=== PATIENT | female | born 1945 | race Hispanic/Latino ===

== ENCOUNTER 2017-02-24 07:58 | Day surgery (SDC) | payer MEDICARE ==
[2017-02-24] MEDS ORDERED: NACL 0.9% 500 ML 500 ML IV SCH (09:00)
[2017-02-24 09:16] LABS: Basophils % (Auto) 0.4 % (0.0-1.8); Eosinophils % (Auto) 2.5 % (0.0-4.3); Hematocrit 39.8 % (30.3-42.9); Hemoglobin 12.5 gm/dl (10.1-14.3); Mean Corpuscular HGB Conc 32 % (30-34); Mean Corpuscular Volume 74 fl (79-97); Platelet Count 323 K/mm3 (140-440); Red Blood Count 5.35 M/mm3 (3.65-5.03); Red Cell Distribution Width 19.6 % (13.2-15.2); White Blood Count 12.3 K/mm3 (4.5-11.0)
[2017-02-24 09:29] LABS: Mean Corpuscular Hemoglobin 24 pg (28-32)
[2017-02-24 09:36] LABS: INR 0.89 (0.87-1.13)
[2017-02-24 09:40] LABS: Anion Gap 18 mmol/L; Blood Urea Nitrogen 17 mg/dL (7-17); Calcium 8.9 mg/dL (8.4-10.2); Carbon Dioxide 22 mmol/L (22-30); Chloride 104.8 mmol/L (98-107); Glucose 94 mg/dL (65-100); Potassium 3.6 mmol/L (3.6-5.0); Sodium 141 mmol/L (137-145)
[2017-02-24] MEDS ORDERED: ECOTRIN PO ONE (10:00)
[2017-02-24] MEDS ORDERED: HEPARIN/NS 5000 UNIT/500ML(CATH LAB) 1,000 ML IR ONE (11:27)
[2017-02-24] MEDS ORDERED: HEPARIN 10,000 UNITS/10 ML ONE (11:28)
[2017-02-24] MEDS ORDERED: XYLOCAINE 2% INFILTRATI ONE (11:28)
[2017-02-24] MEDS ORDERED: CALAN ONE (11:28)
[2017-02-24] MEDS ORDERED: VERSED ONE (11:29)
[2017-02-24] MEDS ORDERED: NITROGLYCERIN SYRINGE 3 ML ONE (11:29)
[2017-02-24] MEDS ORDERED: SUBLIMAZE ONE (11:30)
[2017-02-24 14:40] VITALS: BP 131/49
--- NOTE | 2017-02-24 15:13 | Short Stay Summary ---
Short Stay Documentation Date of service: 02/24/17 - History H&P: obtained from office - Allergies and Medications Current Medications: Allergies acetaminophen [From Percocet] Adverse Reaction (Severe, Verified 02/24/17 09:07) FEEL LIKE SHE IS HAVING A HEART ATTACK oxycodone HCl [From Percocet] Adverse Reaction (Severe, Verified 02/24/17 09:07) FEEL LIKE SHE IS HAVING A HEART ATTACK ANA Inhibitors Adverse Reaction (Verified 02/24/17 09:07) CHRONIC COUGH adhesive tape Adverse Reaction (Unverified 02/24/17 08:01) Itching, SKIN BLISTERS prednisone Adverse Reaction (Verified 02/24/17 09:07) Unknown Home Medications Medication Instructions Recorded Confirmed Last Taken Type Aspirin EC [Aspirin Enteric Coated 81 mg PO DAILY 02/24/17 02/24/17 02/23/17 History TAB] 81mg Budesoni/Formoterol 80-4.5(Nf) 2 puff INHALATION BID 02/24/17 02/24/17 02/24/17 09:15 History [Symbicort 80-4.5 (Nf)] 2 puffs Canagliflozin [Invokana] 1,000 mg PO DAILY 02/24/17 02/24/17 02/23/17 History Escitalopram [Lexapro] 10 mg PO DAILY 02/24/17 02/24/17 02/23/17 History 10mg Furosemide [Lasix TAB] 20 mg PO PRN PRN 02/24/17 02/24/17 02/03/17 History 20mg Glimepiride [Glimepiride] 4 mg PO BID 02/24/17 02/24/17 02/23/17 History 4mg ISOSORBIDE MONOnitrate [Imdur ER] 30 mg PO DAILY 02/24/17 02/24/17 02/23/17 History 30mg Insulin Detemir [Levemir Flextouch] 40 units SQ QAM 02/24/17 02/24/17 02/23/17 08:00 History 40units Levemir Flextouch 30 units SQ QPM 02/24/17 02/24/17 02/23/17 22:00 History 30units Metformin HCl [Glucophage] 1,000 mg PO BID 02/24/17 02/24/17 02/23/17 History 1000mg [place]-3 Fatty Acids/Fish Oil [Fish 1 cap PO DAILY 02/24/17 02/24/17 02/23/17 History Oil] 1 cap Omeprazole [Omeprazole] 40 mg PO DAILY 02/24/17 02/24/17 02/23/17 History 40mg Vit D3 & K/Berberine HCl/Hops 1 tab PO DAILY 02/24/17 02/24/17 02/23/17 History [Ostera Tablet] 1 tab Active Medications Sodium Chloride (Nacl 0.9% 500 Ml) 500 mls @ 50 mls/hr IV DIRECT LUIS FERNANDO Stop: 02/24/17 18:59 Last Admin: 02/24/17 08:32 Dose: 50 mls/hr - Brief post op/procedure progress note Date of procedure: 02/24/17 Pre-op diagnosis: chest pain Post-op diagnosis: same Procedure: LHC - see cath report Anesthesia: local Estimated blood loss: none Pathology: none Condition: stable - Disposition Condition at discharge: Stable Disposition: [id number] TO HOME OR SELFCARE - Discharge Diagnoses (1) Chest pain Status: Chronic Qualifiers: Chest pain type: C Ischemic chest pain type: I (2) Abnormal stress test Status: Chronic (3) HTN (hypertension) Status: Chronic Qualifiers: Hypertension type: H (4) Hyperlipemia Status: Chronic Qualifiers: Hyperlipidemia type: H Short Stay Discharge Plan Activity: advance as tolerated Diet: low fat, low cholesterol, low salt Wound: open to air, keep clean and dry Follow up with: JOLEEN AQUINO MD [Staff Physician] - 7 Days Forms: CardCath PCI D/C Instructions
--- NOTE | 2017-03-18 11:06 | Prelim Cardiac Cath Report ---
Preliminary Cath Report - Other Findings Estimated blood loss: minimal Dominance: right Estimated Ejection Fraction: 55 LV Contractility: left ventricular systolic function was found to be normal. EF 55%. Coronary Anatomy: 71-year-old female with history of diabetes, hypertension, atypical chest pains , and abnormal nuclear imaging with lateral ischemia was scheduled for cardiac catheterization for definitive diagnosis and treatment. Patient is aware of procedure, potential complications and alternators of therapy available. Patient was brought to catheterization laboratory in fasting condition.sterile drapes were applied. Local anesthesia was given using 2% Xylocaine over her right wrist area. Right radial artery puncture was made using 20 G arterial puncture needed. 5F she thought was introduced. Using multipurpose catheter, left ventricular program was perforformed in audio projection and hand injection.using same catheter, right coronary angiograms are obtained in multiple views. This catheter was exchanged with Tig catheter for obtaining angiograms of left coronary artery. Patient was noted to have catheter induced spasm during the right coronary injection,hence JR 4 catheter was used to engage right coronary artery and repeat angiograms were obtained. At the end of the procedure, catheter and sheaths were removed and hemostasis was achieved with pressure bandage. No untoward complications were noted. patient tolerated the procedure well. Left ventriculogram: was performed with hand injection. Showed normal size left ventricle with normal ejection fraction. Ejection fraction was felt to be around 55%. Only limited the amount of dye was injected and mitral regurgitation could not be evaluated. Right coronary artery: dominant vessel, angiographically smooth and normal. However, catheter induced spasm noted in proximal part, and final angiograms showed marked improvement in spasm. No untoward reaction noted. Left coronary artery: left main, LAD which curves around apex,it's diagonal branches , circumflex artery and its branches, ramus branch are angiographically smooth and nor Final impression: normal size the left ventricle with normal contractility, normal coronary anatomy noted. At this time, would continue risk factor modification. Etiology of chest pain is not clear. Findings were explained to patient and family. They understand.
== END 2017-02-24 15:15 | disposition home or self-care (01) ==
LOC: OPU 07:58
PROVIDERS: ATTEND Internal Medicine
DX: R94.39 Abnormal result of other cardiovascular function study (principal); R07.89 Other chest pain; I10 Essential (primary) hypertension; J44.9 Chronic obstructive pulmonary disease, unspecified; E78.5 Hyperlipidemia, unspecified; E11.9 Type 2 diabetes mellitus without complications; E55.9 Vitamin D deficiency, unspecified; F17.290 Nicotine dependence, other tobacco product, uncomplicated; Z88.8 Allergy status to other drugs, medicaments and biological substances; Z91.09 Other allergy status, other than to drugs and biological substances; Z86.79 Personal history of other diseases of the circulatory system; Z79.82 Long term (current) use of aspirin; Z79.899 Other long term (current) drug therapy; Z79.84 Long term (current) use of oral hypoglycemic drugs
CPT/HCPCS: 36415; 80048; 82962; 85025; 85610; 85730; 93005; 93010; 93458; C1769; C1887; C1894; J1644; J2250; J3010; J7040; Q9967

== ENCOUNTER 2021-07-22 07:11 | Emergency (ER) | payer MEDICARE ==
--- NOTE | 2021-07-22 07:14 | Emergency Department Report ---
ED Neuro Deficit HPI - General Chief Complaint: Neuro Symptoms/Deficit Stated Complaint: Left Sided Facial Droop Time Seen by Provider: 07/22/21 07:12 Source: patient, family, EMS (Verbal report received from emergency medical services. EMS documentation not available at time of chart dictation ), RN notes reviewed, old records reviewed Mode of arrival: Stretcher Limitations: Altered Mental Status, Physical Limitation - History of Present Illness Initial Comments: The patient is a 75-year-old female. She is not known to myself previously. She has a history of diabetes, hypertension and high cholesterol. She is brought to the hospital by emergency medical services as a code stroke. Stroke symptoms include altered mental status, left-sided hemiparesis, and left-sided facial droop. Her last known well time is not known. The patient is awake but confused. The patient denies physical pain. Patient accompanied by daughter, and subsequently . Patient not able to describe the qualitative nature of symptoms, exacerbating factors relieving factors or aggravating factors -: unknown Location: speech, left face, left arm, left leg Presenting Symptoms: Present: Weak/Paralyzed One Side, Facial Droop/Numbness, Unable to Speak Clearly, Altered Mental Status - Related Data Home Medications: Home Medications Medication Instructions Recorded Confirmed Last Taken Aspirin EC [Halfprin EC] 81 mg PO DAILY 02/24/17 07/22/21 02/23/17 81 mg Budesoni/Formoterol 80-4.5(Nf) 2 puff INHALATION BID 02/24/17 07/22/21 02/24/17 09:15 [Symbicort 80-4.5 (Nf)] 2 puffs Canagliflozin [Invokana] 1,000 mg PO DAILY 02/24/17 07/22/21 02/23/17 Escitalopram [Lexapro] 10 mg PO DAILY 02/24/17 07/22/21 02/23/17 10 mg Furosemide [Lasix TAB] 20 mg PO PRN PRN 02/24/17 07/22/21 02/03/17 20 mg Glimepiride 4 mg PO BID 02/24/17 07/22/21 02/23/17 4 mg ISOSORBIDE MONOnitrate [Imdur ER] 30 mg PO DAILY 02/24/17 07/22/21 02/23/17 30 mg Insulin Detemir (Nf) [Levemir 40 units SQ QAM 02/24/17 07/22/21 02/23/17 08:00 Flextouch (Nf)] 40 units Levemir Flextouch 30 units SQ QPM 02/24/17 07/22/21 02/23/17 22:00 30 units Metformin HCl [Glucophage] 1,000 mg PO BID 02/24/17 07/22/21 02/23/17 1000 mg [place]-3 Fatty Acids/Fish Oil [Fish 1 cap PO DAILY 02/24/17 07/22/21 02/23/17 Oil] 1 cap Omeprazole 40 mg PO DAILY 02/24/17 07/22/21 02/23/17 40 mg Vit D3-Vit K/Berberine/Hops 1 tab PO DAILY 02/24/17 07/22/21 02/23/17 [Ostera Tablet] 1 tab Metoprolol Tartrate [Lopressor] 150 mg PO DAILY 07/22/21 07/22/21 Unknown Sulfamethoxazole/Trimethoprim 800 each PO DAILY 07/22/21 07/22/21 Unknown [Sulfamethoxazole-Tmp Ds Tablet] buPROPion SR [Wellbutrin Sr] 150 mg PO BID 07/22/21 07/22/21 Unknown carBAMazepine [Carbamazepine] 100 mg PO Q8HR PRN 07/22/21 07/22/21 Unknown Allergies/Adverse Reactions: Allergies Allergy/AdvReac Type Severity Reaction Status Date / Time acetaminophen [From Percocet] AdvReac Severe FEEL LIKE Verified 02/24/17 09:07 SHE IS HAVING A HEART ATTACK oxycodone HCl [From Percocet] AdvReac Severe FEEL LIKE Verified 02/24/17 09:07 SHE IS HAVING A HEART ATTACK ANA Inhibitors AdvReac CHRONIC Verified 02/24/17 09:07 COUGH adhesive tape AdvReac Itching, Unverified 02/24/17 08:01 SKIN BLISTERS prednisone AdvReac Unknown Verified 02/24/17 09:07 ED Review of Systems ROS: Stated complaint: Left Sided Facial Droop Other details as noted in HPI Comment: Unobtainable due to pts medical conditions Cardiovascular: denies: chest pain Gastrointestinal: denies: abdominal pain Neurological: weakness ED Past Medical Hx - Past Medical History Hx Hypertension: Yes Hx Congestive Heart Failure: Yes Hx Diabetes: Yes Hx GERD: Yes Hx COPD: Yes - Surgical History Hx Cholecystectomy: Yes Hx Appendectomy: Yes - Social History Smoking Status: Current Every Day Smoker - Medications Home Medications: Home Medications Medication Instructions Recorded Confirmed Last Taken Type Aspirin EC [Halfprin EC] 81 mg PO DAILY 02/24/17 07/22/21 02/23/17 History 81 mg Budesoni/Formoterol 80-4.5(Nf) 2 puff INHALATION BID 02/24/17 07/22/21 02/24/17 09:15 History [Symbicort 80-4.5 (Nf)] 2 puffs Canagliflozin [Invokana] 1,000 mg PO DAILY 02/24/17 07/22/21 02/23/17 History Escitalopram [Lexapro] 10 mg PO DAILY 02/24/17 07/22/21 02/23/17 History 10 mg Furosemide [Lasix TAB] 20 mg PO PRN PRN 02/24/17 07/22/21 02/03/17 History 20 mg Glimepiride 4 mg PO BID 02/24/17 07/22/21 02/23/17 History 4 mg ISOSORBIDE MONOnitrate [Imdur ER] 30 mg PO DAILY 02/24/17 07/22/21 02/23/17 History 30 mg Insulin Detemir (Nf) [Levemir 40 units SQ QAM 02/24/17 07/22/21 02/23/17 08:00 History Flextouch (Nf)] 40 units Levemir Flextouch 30 units SQ QPM 02/24/17 07/22/21 02/23/17 22:00 History 30 units Metformin HCl [Glucophage] 1,000 mg PO BID 02/24/17 07/22/21 02/23/17 History 1000 mg [place]-3 Fatty Acids/Fish Oil [Fish 1 cap PO DAILY 02/24/17 07/22/21 02/23/17 History Oil] 1 cap Omeprazole 40 mg PO DAILY 02/24/17 07/22/21 02/23/17 History 40 mg Vit D3-Vit K/Berberine/Hops 1 tab PO DAILY 02/24/17 07/22/21 02/23/17 History [Ostera Tablet] 1 tab Metoprolol Tartrate [Lopressor] 150 mg PO DAILY 07/22/21 07/22/21 Unknown History Sulfamethoxazole/Trimethoprim 800 each PO DAILY 07/22/21 07/22/21 Unknown Hi story [Sulfamethoxazole-Tmp Ds Tablet] buPROPion SR [Wellbutrin Sr] 150 mg PO BID 07/22/21 07/22/21 Unknown History carBAMazepine [Carbamazepine] 100 mg PO Q8HR PRN 07/22/21 07/22/21 Unknown History ED Neuro Physical Exam - General Limitations: Altered Mental Status, Physical Limitation General appearance: anxious, in distress, obese Suspected Stroke: Yes - Head Head exam: Present: atraumatic, normocephalic - Eye Eye exam: Present: normal appearance, EOMI - ENT ENT exam: Present: normal exam, normal orophraynx, mucous membranes moist, normal external ear exam - Neck Neck exam: Present: normal inspection, full ROM. Absent: tenderness, meningismus - Respiratory Respiratory exam: Present: normal lung sounds bilaterally. Absent: respiratory distress, wheezes, rales, rhonchi, stridor, decreased breath sounds - Cardiovascular Cardiovascular Exam: Present: regular rate, normal rhythm, normal heart sounds. Absent: bradycardia, tachycardia, irregular rhythm, systolic murmur, diastolic murmur, rubs, gallop - GI/Abdominal GI/Abdominal exam: Present: soft. Absent: distended, tenderness, guarding, rebound, rigid, pulsatile mass - Extremities Exam Extremities exam: Present: normal inspection, full ROM (Right arm, right leg.), pedal edema (1+ edema in the bilateral lower extremities), other (2+ pulses noted in the bilateral upper and lower extremities. There is no palpable cord. negative Homans sign. Muscular compartments are soft. The pelvis is stable.). Absent: calf tenderness - Back Exam Back exam: Present: normal inspection. Absent: tenderness, paraspinal tenderness - Neurological Exam Neurological exam: Present: altered (The patient is awake to name. The patient follows commands.), motor sensory deficit (Hemiparesis left arm and left leg), other (There is left-sided facial droop. EOMI. Tongue midline.) - NIHSS Assessment Interval: Baseline 1a. Level of Consciousness: alert/keenly responsive 1b. LOC Questions: dysarthric/intubated 1c. LOC Commands: performs 1 task correctly 2. Best Gaze: normal 3. Visual: no visual loss 4. Facial Palsy: partial paralysis 5b. Motor Arm Right: drift 5a. Motor Arm Left: no gravity effort 6a. Motor Leg Left: no gravity effort 6b. Motor Leg Right: drift 7. Limb Ataxia: present 1 limb 8. Sensory: severe/total sensory loss 9. Best Language: mild/moderate aphasia 10. Dysarthria: mild/moderate dysarthria 11. Extinction/Inattention: visual/tactile inattention Total Score: 18 Stroke Severity: Moderate to Severe Stroke - Psychiatric Psychiatric exam: Present: normal affect, normal mood - Skin Skin exam: Present: warm, dry, intact, normal color. Absent: rash ED Course Vital Signs 07/22/21 07/22/21 07/22/21 07:15 07:32 07:45 Temperature 97.7 F Pulse Rate 82 86 84 Respiratory 15 18 20 Rate Blood Pressure 157/68 O2 Sat by Pulse 95 97 96 Oximetry 07/22/21 07/22/21 07/22/21 07:56 08:01 08:15 Temperature 97.7 F Pulse Rate 82 71 Respiratory 16 22 Rate Blood Pressure 153/76 157/68 O2 Sat by Pulse 96 95 Oximetry - Reevaluation(s) Reevaluation #1: 07/22/21 08:12 Differential diagnosis, including but not limited to: Stroke, pneumonia, urinary tract infection Assessment and plan: Elderly 75-year-old female, presenting with a clinical right MCA syndrome, last known well time is not known, therefore, she is not a TPA candidate. Noncontrast CT scan of the brain was negative for acute findings. A CT angiogram head and neck was obtained emergently given concern for right sided MCA syndrome. The radiologist has called me with a report of a right M2 MCA occlusion, and a right-sided carotid bulb stenosis, 89 to 90%. I have requested that CT scans be emergently transmitted to [facility] PACS. I have personally placed a page to the [place] acute stroke attending to discuss whether or not this patient is an emergent endovascular candidate. I discussed this with the patient's family and . Patient also seen by my stroke neurologist, Dr. Alonso, who agrees with the plan of care. We are currently awaiting callback from [place] stroke neurology. 07/22/21 08:53 Discussed history, physical, imaging studies and clinical impression with acute stroke neurology at [facility], Dr Hwang He is going to evaluate the patient's images, make further recommendations. The patient's , who does not live with the patient, states that he last saw the patient normal at 2:00 PM yesterday. The patient tells me that she went to bed at 430 this morning, and felt fine, and woke up at around 6:00 this morning, with her strokelike symptoms. She denies physical pain at this time. 07/22/21 09:25 Have not discussed history, physical, imaging studies and clinical impression with [facility] stroke neurologist, Dr. Kaya Sandoval; He is currently reviewing patient's imaging. He is going to make further recommendations. 07/22/21 09:40 Dr. Kaya Sandoval has accepted this patient to [facility] for emergent thrombectomy and intervention. Patient has an acute stroke and is within 24 hours of her last known well time, she has an emergent medical condition at this time which cannot be definitively managed at this hospital, as we are not able to perform endovascular intervention on acute stroke patients. I discussed this with the patient, her daughter, and her . All questions answered. They have provided consent for transfer. At the moment, blood pressure 150 systolic, patient awake, protecting airway, moving right hemibody, charge nurse to arrange emergent transfer, either ambulance, lights and sirens, or airlift. - Lab Data Result diagrams: 07/22/21 07:42 07/22/21 07:42 Lab Results 07/22/21 07/22/21 07/22/21 Range/Units 07:42 07:42 07:42 WBC 12.9 H (4.5-11.0) K/mm3 RBC 4.93 (3.65-5.03) M/mm3 Hgb 15.9 H (10.1-14.3) gm/dl Hct 49.0 H (30.3-42.9) % MCV 99 H (79-97) fl MCH 32 (28-32) pg MCHC 33 (30-34) % RDW 13.3 (13.2-15.2) % Plt Count 202 (140-440) K/mm3 Lymph % (Auto) 13.9 (13.4-35.0) % [place] % (Auto) 6.1 (0.0-7.3) % Eos % (Auto) 0.7 (0.0-4.3) % Baso % (Auto) 0.2 (0.0-1.8) % Lymph # (Auto) 1.8 (1.2-5.4) K/mm3 [place] # (Auto) 0.8 (0.0-0.8) K/mm3 Eos # (Auto) 0.1 (0.0-0.4) K/mm3 Baso # (Auto) 0.0 (0.0-0.1) K/mm3 Seg Neutrophils % 79.1 H (40.0-70.0) % Seg Neutrophils # 10.2 H (1.8-7.7) K/mm3 PT 12.6 (12.2-14.9) Sec. INR 0.85 L (0.87-1.13) APTT > 240.0 H* (24.2-36.6) Sec. Thrombin Time < 13.0 L (15.1-19.6) Sec. Sodium (137-145) mmol/L Potassium (3.6-5.0) mmol/L Chloride (98-107) mmol/L Carbon Dioxide (22-30) mmol/L Anion Gap mmol/L BUN (7-17) mg/dL Creatinine (0.6-1.2) mg/dL Estimated GFR ml/min BUN/Creatinine Ratio % Glucose (65-100) mg/dL POC Glucose (70-105) mg/dL Calcium (8.4-10.2) mg/dL Total Bilirubin (0.1-1.2) mg/dL AST (5-40) units/L ALT (7-56) units/L Alkaline Phosphatase (35-129) units/L Total Creatine Kinase 25 L (30-135) units/L CK-MB (CK-2) 1.8 (0.0-4.0) ng/mL CK-MB (CK-2) Rel Index 7.2 H (0-4) Troponin T < 0.010 (0.00-0.029) ng/mL Total Protein (6.3-8.2) g/dL Albumin (3.9-5) g/dL Albumin/Globulin Ratio % TSH (0.270-4.200) mlU/mL Plasma/Serum Alcohol (0-0.07) % 07/22/21 07/22/21 07/22/21 Range/Units 07:42 07:42 07:42 WBC (4.5-11.0) K/mm3 RBC (3.65-5.03) M/mm3 Hgb (10.1-14.3) gm/dl Hct (30.3-42.9) % MCV (79-97) fl MCH (28-32) pg MCHC (30-34) % RDW (13.2-15.2) % Plt Count (140-440) K/mm3 Lymph % (Auto) (13.4-35.0) % [place] % (Auto) (0.0-7.3) % Eos % (Auto) (0.0-4.3) % Baso % (Auto) (0.0-1.8) % Lymph # (Auto) (1.2-5.4) K/mm3 [place] # (Auto) (0.0-0.8) K/mm3 Eos # (Auto) (0.0-0.4) K/mm3 Baso # (Auto) (0.0-0.1) K/mm3 Seg Neutrophils % (40.0-70.0) % Seg Neutrophils # (1.8-7.7) K/mm3 PT (12.2-14.9) Sec. INR (0.87-1.13) APTT (24.2-36.6) Sec. Thrombin Time (15.1-19.6) Sec. Sodium 134 L (137-145) mmol/L Potassium 4.1 (3.6-5.0) mmol/L Chloride 98.1 (98-107) mmol/L Carbon Dioxide 23 (22-30) mmol/L Anion Gap 17 mmol/L BUN 13 (7-17) mg/dL Creatinine 0.5 L (0.6-1.2) mg/dL Estimated GFR > 60 ml/min BUN/Creatinine Ratio 26 % Glucose 114 H (65-100) mg/dL POC Glucose (70-105) mg/dL Calcium 9.0 (8.4-10.2) mg/dL Total Bilirubin 0.20 (0.1-1.2) mg/dL AST 13 (5-40) units/L ALT 12 (7-56) units/L Alkaline Phosphatase 114 (35-129) units/L Total Creatine Kinase (30-135) units/L CK-MB (CK-2) (0.0-4.0) ng/mL CK-MB (CK-2) Rel Index (0-4) Troponin T (0.00-0.029) ng/mL Total Protein 7.5 (6.3-8.2) g/dL Albumin 3.1 L (3.9-5) g/dL Albumin/Globulin Ratio 0.7 % TSH 9.450 H (0.270-4.200) mlU/mL Plasma/Serum Alcohol < 0.01 (0-0.07) % 07/22/21 Range/Units 08:34 WBC (4.5-11.0) K/mm3 RBC (3.65-5.03) M/mm3 Hgb (10.1-14.3) gm/dl Hct (30.3-42.9) % MCV (79-97) fl MCH (28-32) pg MCHC (30-34) % RDW (13.2-15.2) % Plt Count (140-440) K/mm3 Lymph % (Auto) (13.4-35.0) % [place] % (Auto) (0.0-7.3) % Eos % (Auto) (0.0-4.3) % Baso % (Auto) (0.0-1.8) % Lymph # (Auto) (1.2-5.4) K/mm3 [place] # (Auto) (0.0-0.8) K/mm3 Eos # (Auto) (0.0-0.4) K/mm3 Baso # (Auto) (0.0-0.1) K/mm3 Seg Neutrophils % (40.0-70.0) % Seg Neutrophils # (1.8-7.7) K/mm3 PT (12.2-14.9) Sec. INR (0.87-1.13) APTT (24.2-36.6) Sec. Thrombin Time (15.1-19.6) Sec. Sodium (137-145) mmol/L Potassium (3.6-5.0) mmol/L Chloride (98-107) mmol/L Carbon Dioxide (22-30) mmol/L Anion Gap mmol/L BUN (7-17) mg/dL Creatinine (0.6-1.2) mg/dL Estimated GFR ml/min BUN/Creatinine Ratio % Glucose (65-100) mg/dL POC Glucose 107 H (70-105) mg/dL Calcium (8.4-10.2) mg/dL Total Bilirubin (0.1-1.2) mg/dL AST (5-40) units/L ALT (7-56) units/L Alkaline Phosphatase (35-129) units/L Total Creatine Kinase (30-135) units/L CK-MB (CK-2) (0.0-4.0) ng/mL CK-MB (CK-2) Rel Index (0-4) Troponin T (0.00-0.029) ng/mL Total Protein (6.3-8.2) g/dL Albumin (3.9-5) g/dL Albumin/Globulin Ratio % TSH (0.270-4.200) mlU/mL Plasma/Serum Alcohol (0-0.07) % - EKG Data -: EKG Interpreted by [place] EKG shows normal: sinus rhythm Rate: normal 07/22/21 08:06 The EKG is interpreted at 07: 47 Sinus rhythm, rate 82 bpm. There is normal axis. There is normal P wave axis. There is poor R wave progression. The QTC is prolonged. There is motion artifact. This is an abnormal EKG. This is not a STEMI. - Radiology Data Radiology results: pending, report reviewed, image reviewed Findings were communicated to Dr. ADAM MONTGOMERY MD by Dr. Zachary Arvizu MD, via telephone on 07/22/2021 6:55 AM. Signer Name: Zachary Arvizu MD Signed: 07/22/2021 6:55 AM Workstation Name: [id number] WITHOUT CONTRAST INDICATION / CLINICAL INFORMATION: Stroke symptoms, right MCA syndrome. TECHNIQUE: All CT scans at this location are performed using CT dose reduction for ALARA by means of automated exposure control. COMPARISON: None available. FINDINGS: BRAIN PARENCHYMA: No acute intracranial hemorrhage. No evidence of recent infarct. No mass effect or midline shift. White matter chronic small vessel ischemic changes. VENTRICULAR SYSTEM/EXTRA-AXIAL SPACES: Age-related cerebral atrophy. No extra-axial fluid collection. ORBITS: Normal as visualized. SKELETAL SYSTEM/SOFT TISSUES: Normal bones and soft tissues. PARANASAL SINUSES/MASTOID AIR CELLS: No significant abnormality. ADDITIONAL FINDINGS: None. IMPRESSION: 1. No acute intracranial abnormality. Signer Name: Zachary Arvizu MD Signed: 07/22/2021 6:27 AM Workstation Name: [id number] CT angio neck INDICATION / CLINICAL INFORMATION: 75 years Female; right mca syndrome CODE STROKE CALL ER MAIN AT [phone] OMNI 350 100 ML. TECHNIQUE: Thin cut axial images obtained through the head during IV bolus contrast administration. Sagittal, coronal, and 3 plane MIP reconstructions performed by the technologist. NASCET type criteria used evaluate stenoses. All CT scans at this location are performed using CT dose reduction for ALARA by means of automated exposure control. COMPARISON: None available. FINDINGS: ARCH: There are moderate calcific plaques at the aortic arch as well as the origins of the great vessels. There appears to be hemodynamically significant stenosis at the origin of the left subclavian artery estimated at 70%. CAROTID ARTERIES: Severe i rregular calcific plaque is identified in the right carotid bulb with stenosis measuring 80-90%. There is mild calcific plaque in the proximal right ICA but no stenosis or occlusion. Moderate calcific plaque is identified in the left carotid bulb and proximal ICA but no hemodynamically significant stenosis. VERTEBRAL ARTERIES: Right dominant vertebral system seen. No significant stenosis appreciated. ADDITIONAL FINDINGS: Remainder of the surrounding soft tissues are grossly normal. IMPRESSION: Moderate to severe stenosis in the right carotid bulb as described. Consider correlation with carotid Doppler. Images of the aortic arch are slightly limited but stenosis is suggested at the origin the left subclavian artery. Mild to moderate atherosclerotic plaques are identified bilaterally. Signer Name: Dakota Huynh Jr, MD Signed: 07/22/2021 7:07 AM Workstation Name: [id number] CHEST 1 VIEW 07/22/2021 7:40 AM INDICATION / CLINICAL INFORMATION: cva. COMPARISON: None available. FINDINGS: SUPPORT DEVICES: None. HEART / MEDIASTINUM: No significant abnormality. LUNGS / PLEURA: No significant pulmonary or pleural abnormality. No pneumothorax. ADDITIONAL FINDINGS: No significant additional findings. IMPRESSION: 1. No acute findings. Signer Name: Adarsh Ibanez MD Signed: 07/22/2021 7:04 AM Workstation Name: [id number] CT angio head INDICATION / CLINICAL INFORMATION: 75 years Female; right mca syndrome CODE STROKE CALL ER MAIN AT 8199 OMNI 350 100 ML. TECHNIQUE: Thin cut axial images obtained through the head during IV bolus contrast administration. Sagittal, coronal, and 3 plane MIP reconstructions performed by the technologist. NASCET type criteria used evaluate stenoses. Automated exposure control utilized for radiation reduction purposes. COMPARISON: CT head performed earlier today FINDINGS: INTERNAL CAROTID ARTERIES: There are moderate calcific plaques in the cavernous and supraclinoid ICAs bilaterally but no hemodynamically significant stenosis is appreciated. VERTEBROBASILAR SYSTEM: No significant narrowing appreciated. DISTAL BRANCHES: Complete occlusion of the right M2 segment within the right sylvian fissure is identified which is best demonstrated on axial images 90-100. The remainder of the right MCA is patent. The left MCA, bilateral ACAs and bilateral journalist are patent. A large right posterior communicating artery is identified. ANEURYSM: None identified. ADDITIONAL FINDINGS: Remainder of the surrounding soft tissues are grossly normal. 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 Mild to moderate diffuse atherosclerotic disease. CRITICAL RESULT: Time of Discovery (BROACHING MACHINE REPAIRER/CDT): 0708 hours Time of Communication (BROACHING MACHINE REPAIRER/CDT): 0710 hours Licensed Practitioner Receiving Report: Dr. Villar Read-Back Performed: Yes. Signer Name: Dakota Huynh Jr, MD Signed: 07/22/2021 7:16 AM Workstation Name: [id number] - Core Measures Measure Exclusions: not indicated - Thrombolytic Inclusion/Exclusion Thrombolytic Exclusion Criteria: Onset of Symptoms Unknown Critical Care Time: Yes Critical care time in (mins) excluding proc time.: 74 Critical care attestation.: If time is entered above; I have spent that time in minutes in the direct care of this critically ill patient, excluding procedure time. Critical Care Time: Critical care time includes multiple bedside reevaluations, interpretation of laboratory studies, radiology studies, discussion with multiple consulting services, including acute neurology, interventional stroke neurology, and multiple discussions with patient's, and family. ED Disposition Clinical Impression: Acute stroke due to ischemia, Carotid stenosis, right, Middle cerebral artery syndrome Disposition: 02 SHORT TERM HOSPITAL Is pt being admited?: No Does the pt Need Aspirin: No Condition: Serious Referrals: PRIMARY CARE, [Primary Care Provider] - 3-5 Days
--- NOTE | 2021-07-22 07:32 | Cat Scan Report ---
CT HEAD WITHOUT CONTRAST INDICATION / CLINICAL INFORMATION: Stroke symptoms, right MCA syndrome. TECHNIQUE: All CT scans at this location are performed using CT dose reduction for ALARA by means of automated exposure control. COMPARISON: None available. FINDINGS: BRAIN PARENCHYMA: No acute intracranial hemorrhage. No evidence of recent infarct. No mass effect or midline shift. White matter chronic small vessel ischemic changes. VENTRICULAR SYSTEM/EXTRA-AXIAL SPACES: Age-related cerebral atrophy. No extra-axial fluid collection. ORBITS: Normal as visualized. SKELETAL SYSTEM/SOFT TISSUES: Normal bones and soft tissues. PARANASAL SINUSES/MASTOID AIR CELLS: No significant abnormality. ADDITIONAL FINDINGS: None. IMPRESSION: 1. No acute intracranial abnormality. Signer Name: Zachary Arvizu MD Signed: 07/22/2021 7:27 AM Workstation Name: [id number]
[2021-07-22 07:51] LABS: Basophils % (Auto) 0.2 % (0.0-1.8); Eosinophils # (Auto) 0.1 K/mm3 (0.0-0.4); Eosinophils % (Auto) 0.7 % (0.0-4.3); Hemoglobin 15.9 gm/dl (10.1-14.3); Lymphocytes # (Auto) 1.8 K/mm3 (1.2-5.4); Lymphocytes % (Auto) 13.9 % (13.4-35.0); Mean Corpuscular HGB Conc 33 % (30-34); Mean Corpuscular Volume 99 fl (79-97); Monocytes # (Auto) 0.8 K/mm3 (0.0-0.8); Monocytes % (Auto) 6.1 % (0.0-7.3); Platelet Count 202 K/mm3 (140-440); Red Blood Count 4.93 M/mm3 (3.65-5.03); Red Cell Distribution Width 13.3 % (13.2-15.2)
[2021-07-22 08:07] LABS: Alanine Aminotransferase 12 units/L (7-56); Albumin 3.1 g/dL (3.9-5); Blood Urea Nitrogen 13 mg/dL (7-17); Hemolysis Index 46; INR 0.85 (0.87-1.13)
[2021-07-22 08:08] LABS: BUN/Creatinine Ratio 26
--- NOTE | 2021-07-22 08:08 | XRay Report ---
CHEST 1 VIEW 07/22/2021 7:40 AM INDICATION / CLINICAL INFORMATION: cva. COMPARISON: None available. FINDINGS: SUPPORT DEVICES: None. HEART / MEDIASTINUM: No significant abnormality. LUNGS / PLEURA: No significant pulmonary or pleural abnormality. No pneumothorax. ADDITIONAL FINDINGS: No significant additional findings. IMPRESSION: 1. No acute findings. Signer Name: Adarsh Ibanez MD Signed: 07/22/2021 8:04 AM Workstation Name: [id number]
[2021-07-22 08:09] LABS: Creatine Kinase MB 1.8 ng/mL (0.0-4.0)
--- NOTE | 2021-07-22 08:11 | Cat Scan Report ---
CT angio neck INDICATION / CLINICAL INFORMATION: 75 years Female; right mca syndrome CODE STROKE CALL ER MAIN AT 8199 OMNI 350 100 ML. TECHNIQUE: Thin cut axial images obtained through the head during IV bolus contrast administration. S agittal, coronal, and 3 plane MIP reconstructions performed by the technologist. NASCET type criteria used evaluate stenoses. All CT scans at this location are performed using CT dose reduction for ALAR A by means of automated exposure control. COMPARISON: None available. FINDINGS: ARCH: There are moderate calcific plaques at the aortic arch as well as the origins of the great vess els. There appears to be hemodynamically significant stenosis at the origin of the left subclavian ar valdez estimated at 70%. CAROTID ARTERIES: Severe irregular calcific plaque is identified in the right carotid bulb with steno sis measuring 80-90%. There is mild calcific plaque in the proximal right ICA but no stenosis or occl usion. Moderate calcific plaque is identified in the left carotid bulb and proximal ICA but no hemody namically significant stenosis. VERTEBRAL ARTERIES: Right dominant vertebral system seen. No significant stenosis appreciated. ADDITIONAL FINDINGS: Remainder of the surrounding soft tissues are grossly normal. IMPRESSION: Moderate to severe stenosis in the right carotid bulb as described. Consider correlation with carotid Doppler. Images of the aortic arch are slightly limited but stenosis is suggested at the origin the left subcl ligia artery. Mild to moderate atherosclerotic plaques are identified bilaterally. Signer Name: Dakota Huynh Jr, MD Signed: 07/22/2021 8:07 AM Workstation Name: [id number]
--- NOTE | 2021-07-22 08:21 | Cat Scan Report ---
CT angio head INDICATION / CLINICAL INFORMATION: 75 years Female; right mca syndrome CODE STROKE CALL ER MAIN AT 8199 OMNI 350 100 ML. TECHNIQUE: Thin cut axial images obtained through the head during IV bolus contrast administration. S agittal, coronal, and 3 plane MIP reconstructions performed by the technologist. NASCET type criteria used evaluate stenoses. Automated exposure control utilized for radiation reduction purposes. COMPARISON: CT head performed earlier today FINDINGS: INTERNAL CAROTID ARTERIES: There are moderate calcific plaques in the cavernous and supraclinoid ICAs bilaterally but no hemodynamically significant stenosis is appreciated. VERTEBROBASILAR SYSTEM: No significant narrowing appreciated. DISTAL BRANCHES: Complete occlusion of the right M2 segment within the right sylvian fissure is ident ified which is best demonstrated on axial images 90-100. The remainder of the right MCA is patent. Th e left MCA, bilateral ACAs and bilateral lifter/driver are patent. A large right posterior communicating arter y is identified. ANEURYSM: None identified. ADDITIONAL FINDINGS: Remainder of the surrounding soft tissues are grossly normal. 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 Mild to moderate diffuse atherosclerotic disease. CRITICAL RESULT: Time of Discovery (NETWORK RELATIONS CONSULTANT/CDT): 0708 hours Time of Communication (NETWORK RELATIONS CONSULTANT/CDT): 0710 hours Licensed Practitioner Receiving Report: Dr. Villar Read-Back Performed: Yes. Signer Name: Dakota Huynh Jr, MD Signed: 07/22/2021 8:16 AM Workstation Name: [id number]
[2021-07-22 08:23] LABS: Thrombin Time < 13.0 Sec. (15.1-19.6)
[2021-07-22 08:26] VITALS: BP 157/68
[2021-07-22 08:27] LABS: Partial Thromboplastin Time > 240.0 Sec. (24.2-36.6)
--- NOTE | 2021-07-22 09:41 | Consultation ---
Medications and Allergies Allergies Allergy/AdvReac Type Severity Reaction Status Date / Time acetaminophen [From Percocet] AdvReac Severe FEEL LIKE Verified 02/24/17 09:07 SHE IS HAVING A HEART ATTACK oxycodone HCl [From Percocet] AdvReac Severe FEEL LIKE Verified 02/24/17 09:07 SHE IS HAVING A HEART ATTACK ANA Inhibitors AdvReac CHRONIC Verified 02/24/17 09:07 COUGH adhesive tape AdvReac Itching, Unverified 02/24/17 08:01 SKIN BLISTERS prednisone AdvReac Unknown Verified 02/24/17 09:07 Home Medications Medication Instructions Recorded Confirmed Last Taken Type Aspirin EC [Halfprin EC] 81 mg PO DAILY 02/24/17 07/22/21 02/23/17 History 81 mg Budesoni/Formoterol 80-4.5(Nf) 2 puff INHALATION BID 02/24/17 07/22/21 02/24/17 09:15 History [Symbicort 80-4.5 (Nf)] 2 puffs Canagliflozin [Invokana] 1,000 mg PO DAILY 02/24/17 07/22/21 02/23/17 History Escitalopram [Lexapro] 10 mg PO DAILY 02/24/17 07/22/21 02/23/17 History 10 mg Furosemide [Lasix TAB] 20 mg PO PRN PRN 02/24/17 07/22/21 02/03/17 History 20 mg Glimepiride 4 mg PO BID 02/24/17 07/22/21 02/23/17 History 4 mg ISOSORBIDE MONOnitrate [Imdur ER] 30 mg PO DAILY 02/24/17 07/22/21 02/23/17 History 30 mg Insulin Detemir (Nf) [Levemir 40 units SQ QAM 02/24/17 07/22/21 02/23/17 08:00 History Flextouch (Nf)] 40 units Levemir Flextouch 30 units SQ QPM 02/24/17 07/22/21 02/23/17 22:00 History 30 units Metformin HCl [Glucophage] 1,000 mg PO BID 02/24/17 07/22/21 02/23/17 History 1000 mg [place]-3 Fatty Acids/Fish Oil [Fish 1 cap PO DAILY 02/24/17 07/22/21 02/23/17 History Oil] 1 cap Omeprazole 40 mg PO DAILY 02/24/17 07/22/21 02/23/17 History 40 mg Vit D3-Vit K/Berberine/Hops 1 tab PO DAILY 02/24/17 07/22/21 02/23/17 History [Ostera Tablet] 1 tab Metoprolol Tartrate [Lopressor] 150 mg PO DAILY 07/22/21 07/22/21 Unknown History Sulfamethoxazole/Trimethoprim 800 each PO DAILY 07/22/21 07/22/21 Unknown History [Sulfamethoxazole-Tmp Ds Tablet] buPROPion SR [Wellbutrin Sr] 150 mg PO BID 07/22/21 07/22/21 Unknown History carBAMazepine [Carbamazepine] 100 mg PO Q8HR PRN 07/22/21 07/22/21 Unknown History Physical Examination - Vital Signs Vital Signs: Vital Signs Pulse Resp Pulse Ox 82 15 95 07/22/21 07:15 07/22/21 07:15 07/22/21 07:15 Results - Laboratory Findings CBC and BMP: 07/22/21 07:42 07/22/21 07:42 Abnormal Lab Findings: Abnormal Labs 07/22/21 07/22/21 07/22/21 07:42 07:42 07:42 WBC 12.9 H Hgb 15.9 H Hct 49.0 H MCV 99 H Seg Neutrophils % 79.1 H Seg Neutrophils # 10.2 H INR 0.85 L APTT > 240.0 H* Thrombin Time < 13.0 L Sodium Creatinine Glucose POC Glucose Total Creatine Kinase 25 L CK-MB (CK-2) Rel Index 7.2 H Albumin TSH 07/22/21 07/22/21 07/22/21 07:42 07:42 08:34 WBC Hgb Hct MCV Seg Neutrophils % Seg Neutrophils # INR APTT Thrombin Time Sodium 134 L Creatinine 0.5 L Glucose 114 H POC Glucose 107 H Total Creatine Kinase CK-MB (CK-2) Rel Index Albumin 3.1 L TSH 9.450 H Assessment and Plan [facility] Consult Note # Demographics Consult Type: Acute Stroke Level 2 (4.5-24 hrs) Patient Location: Emergency Room First Name: Diana Last Name: Tori Age: 75 Gender: Female Facility: [facility] Time of Initial Page (Eastern Time): 07/22/2021, 07:10 Time of Return Call (): 07/22/2021, 07:11 # HPI History: 75F last well last night, now with left weakness. No blood thinner use reported. No reported trauma. # Scores Time of exam and NIHSS (): 07/22/2021, 07:20 Level of Consciousness 1a: [0] = Alert; keenly responsive LOC Questions 1b: [0] = Answers both questions correctly LOC Commands 1c: [0] = Performs both tasks correctly Best Gaze 2: [2] = Forced deviation Visual 3: [0] = No visual loss Facial Palsy 4: [2] = Partial paralysis Motor Arm Left 5a: [4] = No movement Motor Arm Right 5b: [0] = No drift Motor Leg Left 6a: [4] = No movement Motor Leg Right 6b: [0] = No drift Limb Ataxia 7: [0] = Absent Sensory 8: [2] = Severe to total sensory loss Best Language 9: [0] = No aphasia Dysarthria 10: [2] = Severe dysarthria Extinction and Inattention 11: [2] = Profound laverne-inattention or extinction to more than one modality NIHSS Total: 18 VAN Screening: Positive # Data Time Head CT personally read by me (): 07/22/2021, 07:[address]: no bleed preliminarily reviewed by me, please refer to radiology read for official reading # Assessment Impression: Ischemic Stroke (Acute) # Plan Thrombolytic/Intervention: Possible IA candidate Thrombolytic Exclusion (< 3 hour window): time of onset unclear Thrombolytic Exclusion: > 4.5 hours Possible IA Candidate: CTA pending Target Blood Pressure: SBP < 220 Labs: lipid panel Imaging: (urgency: STAT): CT Angiogram Head and CT Angiogram Neck Imaging: (urgency: routine): MRI Brain without contrast Diagnostic Test: echo without bubble study Medication: aspirin 81 mg daily start statin with goal of LDL < 70 Other: permissive hypertension I have discussed my recommendations with the referring provider Additional Recommendations: If large vessel intracranial occlusion is found on CT angiogram head and neck, urgent transfer for interventional treatment is r ecommended. Disposition: transfer to IA capable facility # Logistics Telemedicine: Interactive 2 way audio and visual telecommunication technology was utilized during this visit
[2021-07-22 10:08] LABS: Bilirubin,Urine NEG (Negative); Blood,Urine NEG (Negative); Color,Urine Yellow (Yellow); Urobilinogen,Urine < 2.0 mg/dL (<2.0)
--- NOTE | 2021-07-22 18:40 | Electrocardiograph Report ---
[facility] Test Date: 2021-07-22 Test Time: 07:47:58 Pat Name: JENNIFER DHALIWAL Department: Room: Gender: F Clinical Haematologist: GP : [id number] Requested By: ADAM MONTGOMERY Order Number: [id number] Reading MD: Brock Reed Measurements Intervals [place] Rate: 82 P: 74 [place]: 164 QRS: -16 QRSD: 90 T: 30 QT: 409 QTc: 478 Interpretive Statements Sinus rhythm Inferior infarct, old Consider old anterior infarct No previous ECG available for comparison Electronically Signed On 07-22-2021 18:40:31 EST by Brock Reed
== END 2021-07-22 10:00 | disposition short-term general hospital (02) ==
LOC: ED 07:11
DX: I63.9 Cerebral infarction, unspecified (principal); I65.21 Occlusion and stenosis of right carotid artery; G46.0 Middle cerebral artery syndrome; I11.0 Hypertensive heart disease with heart failure; I50.9 Heart failure, unspecified; E11.8 Type 2 diabetes mellitus with unspecified complications; K21.9 Gastro-esophageal reflux disease without esophagitis; J44.9 Chronic obstructive pulmonary disease, unspecified; Z90.49 Acquired absence of other specified parts of digestive tract; Z98.890 Other specified postprocedural states; F17.200 Nicotine dependence, unspecified, uncomplicated; Z88.6 Allergy status to analgesic agent; Z88.5 Allergy status to narcotic agent; Z88.8 Allergy status to other drugs, medicaments and biological substances
CPT/HCPCS: 36415; 70450; 70496; 70498; 71045; 80053; 81001; 82550; 82553; 82962; 84439; 84443; 84484; 85025; 85610; 85670; 85730; 93005; 99291; Q9967; 80320; G0480